=== PATIENT | male | born 1965 | race Caucasian/White ===

== ENCOUNTER 2018-04-06 10:07 | Day surgery (SDC) | payer OTHER ==
[~2018-04-06 10:07] MED LIST: Lactated Ringers 1,000 ML IV SCH; Midazolam 1 MG/ML 2 ML SDV ONE; Propofol 200 MG/20 ML SDV ONE; cefOXitin 2 GM in Premix Bag 1 BAG IV ONE; fentaNYL 100 MCG/2 ML SDV ONE
--- NOTE | 2018-04-06 10:39 | PCM.PREANE ---
Preanesthetic Assessment - Anesthesia/Transfusion/Family Hx Anesthesia History: Prior Anesthesia Without Reaction Other Type of Anesthesia Reaction Comment: woke up with some red, itchy spots on his body after arthroscopy Family History of Anesthesia Reaction: No Transfusion History: No Prior Transfusion(s) Intubation History: Unknown - Review of Systems General: No Symptoms Pulmonary: No Symptoms Cardiovascular: No Symptoms Gastrointestinal: No Symptoms, Other (screening colonoscopy) Neurological: No Symptoms Other: Reports: None - Physical Assessment O2 Sat by Pulse Oximetry: 96 Respiratory Rate: 16 Vital Signs: Last Vital Signs Temp 36.2 C 04/06/18 10:23 Pulse 72 04/06/18 10:23 Resp 16 04/06/18 10:23 BP 120/72 04/06/18 10:23 Pulse Ox 96 04/06/18 10:23 Height: 1.83 m Weight: 130.635 kg ASA Class: 2 Mental Status: Alert & Oriented x3 Airway Class: Mallampati = 2 Dentition: Reports: Normal Dentition Thyro-Mental Finger Breadths: 3 Mouth Opening Finger Breadths: 3 ROM/Head Extension: Full Lungs: Clear to Auscultation, Normal Respiratory Effort Cardiovascular: Regular Rate, Regular Rhythm - Allergies Allergies/Adverse Reactions: Allergies Allergy/AdvReac Type Severity Reaction Status Date / Time bee stings Allergy Anaphylactic Uncoded 12/16/16 11:53 Shock - Blood Blood Available: No - Anesthesia Plan Pre-Op Medication Ordered: None - Acknowledgements Anesthesia Type Planned: MAC Pt an Appropriate Candidate for the Planned Anesthesia: Yes Alternatives and Risks of Anesthesia Discussed w Pt/Guardian: Yes Pt/Guardian Understands and Agrees with Anesthesia Plan: Yes PreAnesthesia Questionnaire HEENT History: Other HEENT History: wears glasses for driving Cardiovascular History: Reports: None Respiratory History: Reports: None Gastrointestinal History: Reports: None Genitourinary History: Reports: None Musculoskeletal History: Reports: Arthritis Neurological History: Reports: Other (See Below) Other Neuro History: hx of motion sickness Psychiatric History: Reports: None Endocrine/Metabolic History: Reports: Obesity/BMI 30+ Hematologic History: Reports: None Immunologic History: Reports: None Oncologic (Cancer) History: Reports: None Dermatologic History: Reports: None - Infectious Disease History Infectious Disease History: Reports: None - Past Surgical History Head Surgeries/Procedures: Reports: None HEENT Surgical History: Reports: Myringotomy w Tube(s) Cardiovascular Surgical History: Reports: None Respiratory Surgical History: Reports: None GI Surgical History: Reports: None Male Surgical History: Reports: None Endocrine Surgical History: Reports: None Neurological Surgical History: Reports: None Musculoskeletal Surgical History: Reports: Arthroscopic Knee, Knee Replacement ( right TKR) Oncologic Surgical History: Reports: None Dermatological Surgical History: Reports: None - SUBSTANCE USE Smoking Status *Q: Never Smoker Second Hand Smoke Exposure: No Recreational Drug Use History: No - HOME MEDS Home Medications: Home Meds EPINEPHrine [Epipen 2-Jt] 1 injection SUBCUT ASDIRECTED PRN 12/13/16 [History] - CURRENT (IN HOUSE) MEDS Current Meds: Current Medications Lactated Ringer's (Ringers, Lactated) 1,000 mls @ 125 mls/hr IV ASDIRECTED DANIEL Last Admin: 04/06/18 10:24 Dose: 125 mls/hr Discontinued Medications Fentanyl (Sublimaze) Confirm Administered Dose 100 mcg .ROUTE .STK-MED ONE Stop: 04/06/18 08:11 Cefoxitin Sodium 2 gm/ Premix 50 mls @ 100 mls/hr IV ONETIME ONE Stop: 04/06/18 08:29 Midazolam HCl (Versed 1 Mg/Ml) Confirm Administered Dose 2 mg .ROUTE .STK-MED ONE Stop: 04/06/18 08:11 Propofol (Diprivan 20 Ml) Confirm Administered Dose 200 mg .ROUTE .STK-MED ONE Stop: 04/06/18 08:11
[2018-04-06] MEDS ORDERED: Propofol 200 MG/20 ML SDV ONE (11:08)
--- NOTE | 2018-04-06 11:29 | PCM.OPNOTE ---
- General Post-Op/Procedure Note Date of Surgery/Procedure: 04/06/18 Operative Procedure(s): Colonoscopy Pre Op Diagnosis: Desire for colorectal cancer screening Post-Op Diagnosis: No evidence of neoplasia Anesthesia Technique: MAC (ASA II) Primary Surgeon: Genaro Bray Condition: Good Free Text/Narrative:: Dictation [id number] CPT CODE [id number]
[2018-04-06] MEDS ORDERED: Lactated Ringers 1,000 ML IV SCH (11:30)
[2018-04-06 12:01] VITALS: BP 110/75
--- NOTE | 2018-04-07 10:31 | OR ---
SURGEON: Genaro Bray M.D. DATE OF PROCEDURE: 04/06/2018 OPEARATION PERFORMED: Colonoscopy. ANESTHESIA: MAC. ASA CLASSIFICATION: II. PREOPERATIVE DIAGNOSIS: Desire for colorectal cancer screening. POSTOPERATIVE DIAGNOSIS: No evidence of neoplasia. DESCRIPTION OF PROCEDURE: The patient was taken to the endoscopy room, positioned on the endoscopy table in the left lateral decubitus position. Time-out was called for appropriate identification of the patient and procedure. Monitored anesthesia care was provided. The colonoscope was inserted into the rectum and advanced with minimal difficulty to the cecum where the colonoscope was retroflexed to visualize the ascending colon from below. The colonoscope was then straightened and slowly withdrawn. The cecum, ascending colon, hepatic flexure, transverse colon, splenic flexure, descending colon, sigmoid colon, and rectum were very well visualized. The prep was excellent. No tumors, polyps, diverticula, or angiodysplastic changes were noted anywhere in the lower gastrointestinal tract. There was no evidence of inflammatory bowel disease. Once the colonoscope was withdrawn to the rectum, it was retroflexed to visualize the anal orifice from above. No tumors or polyps were seen and there were no acute hemorrhoidal changes. The colonoscope was then straightened, the rectum aspirated, and the colonoscope removed. The patient tolerated the procedure well and was taken to recovery room in stable condition. ADAM CANTOR /[id number]
== END 2018-04-06 12:00 | disposition home or self-care (01) ==
LOC: MW.SDS 10:07
PROVIDERS: ATTEND Surgery
DX: Z12.11 Encounter for screening for malignant neoplasm of colon (principal); M19.90 Unspecified osteoarthritis, unspecified site; E66.9 Obesity, unspecified; Z68.39 Body mass index [BMI] 39.0-39.9, adult; Z91.030 Bee allergy status
CPT/HCPCS: 45378; J2250; J3010; J7120; J2704

== ENCOUNTER 2019-04-30 06:35 | Day surgery (SDC) | payer OTHER ==
[~2019-04-30 06:35] MED LIST changes: -Midazolam 1 MG/ML 2 ML SDV ONE; -Propofol 200 MG/20 ML SDV ONE; +ceFAZolin 2 GM in Premix Bag 1 BAG IV SCH; -cefOXitin 2 GM in Premix Bag 1 BAG IV ONE; -fentaNYL 100 MCG/2 ML SDV ONE
[2019-04-30] MEDS ORDERED: Lidocaine 2% 5 ML SDV ONE (07:04)
[2019-04-30] MEDS ORDERED: Rocuronium 100 MG/10 ML Syringe ONE (07:04)
[2019-04-30] MEDS ORDERED: Ondansetron 4 MG/2 ML SDV ONE (07:04)
[2019-04-30] MEDS ORDERED: Propofol 200 MG/20 ML SDV ONE (07:04)
[2019-04-30] MEDS ORDERED: Midazolam 1 MG/ML 2 ML SDV ONE (07:04)
[2019-04-30] MEDS ORDERED: fentaNYL 250 MCG/5 ML SDV ONE (07:05)
--- NOTE | 2019-04-30 07:05 | PCM.PREANE ---
Preanesthetic Assessment - Anesthesia/Transfusion/Family Hx Anesthesia History: Prior Anesthesia Without Reaction Other Type of Anesthesia Reaction Comment: woke up with some red, itchy spots on his body after arthroscopy Family History of Anesthesia Reaction: No Transfusion History: No Prior Transfusion(s) Intubation History: Unknown - Review of Systems General: No Symptoms Pulmonary: No Symptoms Cardiovascular: No Symptoms Gastrointestinal: No Symptoms Neurological: No Symptoms Other: Reports: None - Physical Assessment O2 Sat by Pulse Oximetry: 95 Respiratory Rate: 16 Vital Signs: Last Vital Signs Temp 36 C 04/30/19 06:56 Pulse 72 04/30/19 06:56 Resp 16 04/30/19 06:56 BP 128/78 04/30/19 06:56 Pulse Ox 95 04/30/19 06:56 Height: 1.83 m Weight: 132.449 kg ASA Class: 2 Mental Status: Alert & Oriented x3 Airway Class: Mallampati = 2 Dentition: Reports: Normal Dentition Thyro-Mental Finger Breadths: 3 Mouth Opening Finger Breadths: 2 ROM/Head Extension: Full Lungs: Clear to Auscultation, Normal Respiratory Effort Cardiovascular: Regular Rate, Regular Rhythm - Allergies Allergies/Adverse Reactions: Allergies Allergy/AdvReac Type Severity Reaction Status Date / Time bee stings Allergy Anaphylactic Uncoded 04/27/19 12:07 Shock - Blood Blood Available: No - Anesthesia Plan Pre-Op Medication Ordered: None - Acknowledgements Anesthesia Type Planned: General Anesthesia Pt an Appropriate Candidate for the Planned Anesthesia: Yes Alternatives and Risks of Anesthesia Discussed w Pt/Guardian: Yes Pt/Guardian Understands and Agrees with Anesthesia Plan: Yes PreAnesthesia Questionnaire HEENT History: Other HEENT History: wears glasses for driving Cardiovascular History: Reports: None, Other (See Below) (abnormal EKG 2-3 years ago before TKR- Dr Durbin cleared him) Respiratory History: Reports: None, Other (See Below) (can't lay flat on his back- gets nauseated) Gastrointestinal History: Reports: None Genitourinary History: Reports: None Musculoskeletal History: Reports: Arthritis Neurological History: Reports: Other (See Below) Other Neuro History: hx of motion sickness Psychiatric History: Reports: None Endocrine/Metabolic History: Reports: Obesity/BMI 30+ Hematologic History: Reports: None Immunologic History: Reports: None Oncologic (Cancer) History: Reports: None Dermatologic History: Reports: None - Infectious Disease History Infectious Disease History: Reports: None - Past Surgical History Head Surgeries/Procedures: Reports: None HEENT Surgical History: Reports: Myringotomy w Tube(s) Cardiovascular Surgical History: Reports: None Respiratory Surgical History: Reports: None GI Surgical History: Reports: Colonoscopy Male Surgical History: Reports: None Endocrine Surgical History: Reports: None Neurological Surgical History: Reports: None Musculoskeletal Surgical History: Reports: Arthroscopic Knee, Knee Replacement Other Musculoskeletal Surgeries/Procedures:: rt TKA Oncologic Surgical History: Reports: None Dermatological Surgical History: Reports: None - SUBSTANCE USE Smoking Status *Q: Never Smoker Recreational Drug Use History: No - HOME MEDS Home Medications: Home Meds EPINEPHrine [Epipen 2-Jt] 1 injection SUBCUT ASDIRECTED PRN 12/13/16 [History] - CURRENT (IN HOUSE) MEDS Current Meds: Current Medications Cefazolin Sodium/Dextrose 2 gm (/ Premix) 50 mls @ 100 mls/hr IV ONETIME DANIEL Lactated Ringer's (Ringers, Lactated) 1,000 mls @ 125 mls/hr IV ASDIRECTED [facility] Last Admin: 04/30/19 07:00 Dose: 125 mls/hr
[2019-04-30] MEDS ORDERED: ceFAZolin 1 GM Vial ONE ×2 (07:17→07:55)
[2019-04-30] MEDS ORDERED: Bupivacaine 0.5% 30 ML SDV ONE (07:17)
[2019-04-30] MEDS ORDERED: Bupivacaine 0.5% 10 ML SDV ONE ×2 (07:18→08:30)
[2019-04-30] MEDS ORDERED: Sodium Chloride 0.9% 20 ML ONE (07:55)
[2019-04-30] MEDS ORDERED: Atropine 0.1 MG/ML 10 ML Syringe IVPUSH PRN ×2 (08:14)
[2019-04-30] MEDS ORDERED: Naloxone 0.4 MG/ML Syringe IVPUSH PRN (08:14)
[2019-04-30] MEDS ORDERED: Albuterol 0.083% 2.5 MG/3 ML Neb Soln NEB PRN (08:14)
[2019-04-30] MEDS ORDERED: 50% Dextrose in Water 50 ML Syringe IVPUSH PRN (08:14)
[2019-04-30] MEDS ORDERED: fentaNYL 100 MCG/2 ML SDV IVPUSH PRN (08:14)
[2019-04-30] MEDS ORDERED: EPINEPHrine 1:10,000 1 MG/10 ML Syringe IVPUSH PRN (08:14)
[2019-04-30] MEDS ORDERED: Ondansetron 4 MG/2 ML SDV IV PRN (08:53)
[2019-04-30] MEDS ORDERED: Acetaminophen/HYDROcodone 325-5 MG Tab PO PRN (08:53)
[2019-04-30] MEDS ORDERED: Morphine 10 MG/ML Syringe IVPUSH PRN (08:53)
[2019-04-30] MEDS ORDERED: Lactated Ringers 1,000 ML IV SCH (09:00)
--- NOTE | 2019-04-30 09:00 | PCM.OPNOTE ---
- General Post-Op/Procedure Note Date of Surgery/Procedure: 04/30/19 Operative Procedure(s): Repair incarcerated ventral hernia Pre Op Diagnosis: Incarcerated ventral hernia Post-Op Diagnosis: Same Anesthesia Technique: General ET Tube (ASA II) Primary Surgeon: Genaro Bray Returner: Taylor John Fluid Replacement, Intraop: 1,100 EBL in mLs: 5 Condition: Good Free Text/Narrative:: DICTATION [id number] CPT CODE [id number]
--- NOTE | 2019-04-30 10:55 | OR ---
SURGEON: Genaro Bray M.D. DATE OF PROCEDURE: 04/30/2019 OPERATION PERFORMED: Repair of incarcerated ventral hernia. PRIMARY SURGEON: Genaro Bray M.D. OPTICAL INSTRUMENT INSPECTOR: House Supervisor: MUKESH Farr, airline pilot/first officer student. ANESTHESIA: General endotracheal. ASA CLASSIFICATION: II. PREOPERATIVE DIAGNOSIS: Incarcerated ventral hernia. POSTOPERATIVE DIAGNOSIS: Incarcerated ventral hernia. ESTIMATED BLOOD LOSS: 5 mL. INTRAOPERATIVE FLUID REPLACEMENT: 1100 mL of crystalloid. DESCRIPTION OF PROCEDURE: The patient was taken to the operating room and placed on the operating table in the supine position. Time-out was called for appropriate identification of the patient and procedure. Thigh-high TEDs and sequential compression boots had been placed. The surgical site had been marked prior to the patient entering the operating room. Following satisfactory attainment of general endotracheal anesthesia, the abdomen was prepped with DuraPrep solution. Sterile drapes were applied. The skin overlying the ventral hernia defect was infiltrated with 0.5% Marcaine solution. Skin incision was made and deepened through the subcutaneous tissue identifying the incarcerated preperitoneal fat. This was able to be reduced with a combination of electrocautery and sharp dissection. Once the defect was reduced, the defect was approximately 6 to 7 mm in size. This was repaired with multiple interrupted 0 Ethibond sutures. All sutures were placed under direct vision and held with hemostats until the final suture had been placed. Sutures were then tied down. The patient was given a Valsalva maneuver to 40 cm of water. The repair was solid. The wound was then inspected for hemostasis and small bleeding sites were electrocoagulated. The wound was irrigated with sterile saline solution and all fluid was aspirated. The subcutaneous tissue was reapproximated with 3-0 Vicryl. The skin edges were reapproximated with subcuticular 4-0 Monocryl. The incision was then Steri- Stripped and dressed with a sterile Tegaderm pad. Sponge, needle, and instrument counts were all correct. Following emergence from anesthesia and extubation, the patient was taken to recovery room in stable condition. ADAM CANTOR /[id number]
[2019-04-30 12:22] VITALS: BP 128/75
== END 2019-04-30 12:07 | disposition home or self-care (01) ==
LOC: MW.SDS 06:35
PROVIDERS: ATTEND Surgery
DX: K43.6 Other and unspecified ventral hernia with obstruction, without gangrene (principal); K42.9 Umbilical hernia without obstruction or gangrene; E66.9 Obesity, unspecified; Z68.39 Body mass index [BMI] 39.0-39.9, adult; Z91.030 Bee allergy status
CPT/HCPCS: 49561; A9270; J0330; J0690; J2001; J2250; J2405; J2704; J3010; J3490; J7120; 00790

== ENCOUNTER 2023-10-01 20:23 | Emergency (ER) | payer OTHER ==
[2023-10-01] MEDS ORDERED: Sodium Chloride 0.9% 10 ML Syringe FLUSH PRN (20:25)
[2023-10-01] MEDS ORDERED: Sodium Chloride 0.9% 2.5 ML Syringe FLUSH PRN (20:25)
[2023-10-01] MEDS ORDERED: Aspirin 81 MG Tab.Chew PO ONE (20:43)
[2023-10-01 20:44] LABS: HEMATOCRIT 43.1 % (42.0-52.0); HEMOGLOBIN 14.6 g/dL (14.0-18.0); MEAN CORPUSCULAR HEMOGLOBIN 30.4 pg (28.0-32.0); MEAN CORPUSCULAR HGB CONC 33.9 g/dL (32.0-36.0); MEAN CORPUSCULAR VOLUME 89.8 fL (83.0-99.0); MEAN PLATELET VOLUME 9.5 fL (9.4-12.4); PLATELET COUNT,PLT 323 K/uL (150-400); WHITE BLOOD CELL COUNT,WBC 18.12 K/uL (3.9-11.3)
[2023-10-01] MEDS ORDERED: Heparin Sodium 5,000 Units/ML Vial IVPUSH STA (20:45)
[2023-10-01] MEDS ORDERED: Heparin Sodium/0.45% NaCl 500 ML IV SCH (20:45)
[2023-10-01] MEDS ORDERED: Ticagrelor 90 MG Tab PO STA (20:46)
[2023-10-01] MEDS ORDERED: Heparin Sodium 5,000 Units/ML Vial ONE (20:46)
[2023-10-01] MEDS ORDERED: Tenecteplase 50 MG Kit IV STA (20:47)
[2023-10-01] MEDS ORDERED: Tenecteplase 50 MG Kit ONE (20:47)
[2023-10-01] MEDS ORDERED: Heparin Sodium/0.45% NaCl 500 ML ONE (20:47)
[2023-10-01] MEDS ORDERED: Naloxone 0.4 MG/ML SDV IVPUSH PRN (20:48)
[2023-10-01] MEDS ORDERED: Morphine 4 MG/ML Syringe IVPUSH STA (20:48)
[2023-10-01 20:56] LABS: INR 0.98 (0.86-1.11); PTT,PARTIAL THROMBOPLSTIN TIME 28.2 SEC (23.9-30.7)
[2023-10-01 21:03] LABS: EOSINOPHILS ABSOLUTE MAN 0.2 (0.0-0.7); EOSINOPHILS PERCENT MAN 1 % (0.0-7.0); LYMPHOCYTES ABSOLUTE MAN 1.8 (0.6-2.4); LYMPHOCYTES PERCENT MAN 10 % (16.0-40.0); MONOCYTES PERCENT MAN 11 % (0.0-15.0); SEG NEUTROPHILS ABSOLUTE MAN 14.1 (1.4-5.7); SEG NEUTROPHILS PERCENT MAN 78 % (48.0-80.0)
[2023-10-01 21:14] LABS: A/G RATIO 0.8 (0.9-1.6); BILIRUBIN TOTAL 0.8 mg/dL (0.2-1.0); CALCIUM 9.1 mg/dL (8.5-10.1); CARBON DIOXIDE,CO2 26.7 mmol/L (21.0-32.0); CREATININE 1.1 mg/dL (0.8-1.3); EST CRCL DRUG DOSING (CG) 78.38 mL/min; POTASSIUM,K 3.5 mmol/L (3.5-5.1); PROTEIN TOTAL,TP 8.8 g/dL (6.4-8.2)
[2023-10-01 21:37] VITALS: BP 113/77; PULSE 73
== END 2023-10-01 23:00 | disposition other institution (70) ==
LOC: MW.ED 20:23
DX: I21.9 Acute myocardial infarction, unspecified (principal); E66.9 Obesity, unspecified; Z68.41 Body mass index [BMI] 40.0-44.9, adult; Z91.030 Bee allergy status
CPT/HCPCS: 36415; 80053; 83690; 83735; 84484; 85025; 85610; 85730; 96374; 96375; 99285; A9270; J1644; J2270; J3101; J3490; 93010